=== PATIENT | female | born 1980 | race Caucasian/White ===

== ENCOUNTER 2016-09-08 18:33 | Emergency (ER) | payer OTHER ==
[~2016-09-08] VITALS: Ht 160 cm; Wt 87.3 kg
[~2016-09-08 18:33] MED LIST: CLINDAMYCIN300 M1 PO; DIPHENHYDRAMINE25 M2 PO; FLEXERIL10 M1 PO; MOTRIN800 M1 PO; PREDNISONE20 M1 PO
[2016-09-08 19:33] VITALS: BP 140/75
--- NOTE | 2016-09-08 22:34 | NUR ---
TO ER OF1
--- NOTE | 2016-09-08 22:35 | NUR ---
Patient being evaluated by physician.
[2016-09-08] MEDS ORDERED: KETOROLAC 30 MG/ML VIAL IM ONE (22:45)
[2016-09-08 23:20] VITALS: BP 137/68
--- NOTE | 2016-09-08 23:20 | NUR ---
Patient discharged with v/s stable. Written and verbal after care instructions given and explained. Patient alert, oriented and verbalized understanding of instructions. Ambulatory with steady gait. All questions addressed prior to discharge. ID band removed. Patient advised to follow up with PMD. Rx of naproxen and prednisone given. Patient educated on indication of medication including possible reaction and side effects. Opportunity to ask questions provided and answered.
== END 2016-09-08 23:20 | disposition home or self-care (01) ==
LOC: MED 18:33
DX: S39.012A Strain of muscle, fascia and tendon of lower back, initial encounter (principal); R05 Cough; Z87.891 Personal history of nicotine dependence; X58.XXXA Exposure to other specified factors, initial encounter; Y93.89 Activity, other specified; Y92.89 Other specified places as the place of occurrence of the external cause; Y99.8 Other external cause status
CPT/HCPCS: 71010; 81002; 81025; 96372; 99283; J1885

== ENCOUNTER 2016-10-21 05:04 | Emergency (ER) | payer OTHER ==
[~2016-10-21] VITALS: Ht 158.8 cm; Wt 88.2 kg
[~2016-10-21 05:04] MED LIST changes: -CLINDAMYCIN300 M1 PO; +CYCL-405 PO; -DIPHENHYDRAMINE25 M2 PO; -FLEXERIL10 M1 PO; +IBUP-974 PO; -MOTRIN800 M1 PO; -PREDNISONE20 M1 PO
[2016-10-21 05:11] VITALS: BP 146/68
--- NOTE | 2016-10-21 05:15 | NUR ---
PT TAKEN TO BED 7
--- NOTE | 2016-10-21 05:30 | NUR ---
36Y/F PT. PRESENT TO ED WITH C/O RT. LEG PAIN X 2 MONTHS. PT. STATES HAVING PAIN X 2 MONTH, WAS SEEN BY PMD GOT BACLOFEN AND MOTRIN FOR PAIN. BEEN DOING PT. TONIGHT PAIN WORSEN. NO TRAUMA NOR INJURY. NO MEDICAL HX. AAO X4, AMBULATORY WITH UNSTEADY GAIT DUE TO PAIN. C/O RT. LEG PAIN 11/13. VSS, S/SX OF DISTRESS AT THIS TIME. ER MD MADE AWARE OF PT. STATUS.
--- NOTE | 2016-10-21 05:31 | NUR ---
Dr. Watkins evaluating patient at bedside.
[2016-10-21] MEDS ORDERED: HYDROmorphone 1 MG/ML AMP IM ONE (05:35)
[2016-10-21] MEDS ORDERED: KETOROLAC 30 MG/ML VIAL IM ONE ×2 (05:35→07:00)
--- NOTE | 2016-10-21 06:01 | NUR ---
PT TAKEN TO CT
--- NOTE | 2016-10-21 06:17 | NUR ---
PT BACK FROM CT.
--- NOTE | 2016-10-21 06:50 | NUR ---
DR. ROMO REEVALUATING PT.
[2016-10-21] MEDS ORDERED: HYDROcodone/APAP 5/325 MG 1 TAB TAB PO ONE (07:00)
[2016-10-21 07:26] VITALS: BP 131/77
--- NOTE | 2016-10-21 07:26 | NUR ---
Patient discharged with v/s stable. Written and verbal after care instructions given and explained. Patient alert, oriented and verbalized understanding of instructions. Ambulatory with steady gait. All questions addressed prior to discharge. ID band removed. Patient advised to follow up with PMD. Rx of NORCO 5MG-325MG TAB 1 TAB EVERY 4 HOURS NEEDED FOR PAIN, NAPROSYN 500MG 1 TAB 2 TIMES A DAY NEEDED FOR PAIN given. Patient educated on indication of medication including possible reaction and side effects. Opportunity to ask questions provided and answered.
== END 2016-10-21 07:26 | disposition home or self-care (01) ==
LOC: MED 05:04
DX: M51.17 Intervertebral disc disorders with radiculopathy, lumbosacral region (principal)
CPT/HCPCS: 72131; 81025; 96372; 99284; J1170; J1885

== ENCOUNTER 2016-10-27 17:35 | Emergency (ER) | payer OTHER ==
[~2016-10-27] VITALS: Ht 162.6 cm; Wt 87.2 kg
[2016-10-27 18:12] VITALS: BP 141/82
--- NOTE | 2016-10-27 19:32 | NUR ---
PT TAKEN TO BED 4
--- NOTE | 2016-10-27 19:35 | NUR ---
36F BIB SELF C/O LOWER BACK PAIN X 3 MONTHS, RADIATING TO RT LEG X 1 MONTH, SHARP, 09/13; PT STATES " I KNOW IT'S MY NERVE"; PT STATES NO TRAUMA OR INJURY TO SITE AT THIS TIME; RT PEDAL PULSE PALPABLE, RT CAP REFILL < 2 SECONDS, NO LOSS OF SENSATION TO RT LEG AT THIS TIME; PT C/O 2 EPISODES OF VOMITING TODAY, BUT STATES NO DIARRHEA AT THIS TIME; ABDOMEN SOFT, NON-TENDER, ACTIVE BOWEL SOUNDS X 4 QUADRANTS; PT AA&OX4, PERRLA, BL LUNG SOUNDS CLEAR, RR EVEN/UNLABORED, SKIN IS WARM/DRY/INTACT AT THIS TIME; PT RESTING IN BED W/ HOB ELEVATED AND IN LOWEST POSITION; POSITIONED FOR COMFORT; ER MD MADE AWARE OF STATUS. WILL CONTINUE TO MONITOR.
--- NOTE | 2016-10-27 19:40 | NUR ---
Dr. Chairez evaluating patient at bedside.
[2016-10-27] MEDS ORDERED: MORPHINE SULFATE 10 MG/ML SYR IM ONE (19:50)
[2016-10-27] MEDS ORDERED: ONDANSETRON 4 MG ODT PO ONE (19:50)
[2016-10-27 20:40] VITALS: BP 121/77
--- NOTE | 2016-10-27 20:40 | NUR ---
Patient discharged with v/s stable. Written and verbal after care instructions given and explained. Patient alert, oriented and verbalized understanding of instructions. Ambulatory with steady gait. All questions addressed prior to discharge. ID band removed. Patient advised to follow up with PMD. Rx of NORCO 5MG-325MG TAB given. Patient educated on indication of medication including possible reaction and side effects. Opportunity to ask questions provided and answered.
== END 2016-10-27 20:40 | disposition home or self-care (01) ==
LOC: MED 17:35
DX: M51.36 Other intervertebral disc degeneration, lumbar region (principal)
CPT/HCPCS: 81002; 81025; 96372; 99283; J2270; S0119

== ENCOUNTER 2016-11-27 14:26 | Emergency (ER) | payer OTHER ==
[~2016-11-27] VITALS: Ht 157.5 cm; Wt 87.1 kg
[~2016-11-27 14:26] MED LIST changes: -CYCL-405 PO; +HYDR-4446 PO; +NAPR500T1 PO
[2016-11-27 14:59] VITALS: BP 149/97
--- NOTE | 2016-11-27 17:13 | NUR ---
36F BIB SELF C/O "SHARP" BACK PAIN 10/13 RADIATING TO RIGHT KNEE AND FOOT X 2 DAYS; PT HAS HX OF STENOSIS; PT DENIES ANY RECENT FALLS OR INJURY; PATIENT MOVING ALL FOUR EXTREMITIES; PT AOX4 WITH STEADY GAIT; RR ARE EVEN AND UNLABORED;VSS; PATIENT POSITIONED FOR COMFORT; HOB ELEVATED; ER OSEA BY BEDSIDE EXAMINING PATIENT; WILL CONTINUE TO MONITOR
[2016-11-27] MEDS ORDERED: BUPIVACAINE-MPF 0.5% 10 ML VIAL INJ ONE (17:25)
[2016-11-27] MEDS ORDERED: DEXAMETHASONE 4 MG/ML VIAL IM ONE (17:25)
--- NOTE | 2016-11-27 17:34 | NUR ---
Dr. Hernandez at bedside.
--- NOTE | 2016-11-27 18:14 | NUR ---
Patient discharged with v/s stable. Written and verbal after care instructions given and explained. Patient verbalized understanding. Ambulatory with steady gait. All questions addressed prior to discharge. Advised to follow up with PMD.
[2016-11-27 18:15] VITALS: BP 150/88
== END 2016-11-27 18:14 | disposition home or self-care (01) ==
LOC: MED 14:26
DX: G89.29 Other chronic pain (principal); M54.5 Low back pain; Z79.899 Other long term (current) drug therapy; Z88.8 Allergy status to other drugs, medicaments and biological substances
CPT/HCPCS: 20552; 81002; 81025; 96372; 99284; J1100; J3490

== ENCOUNTER 2016-12-16 23:17 | Emergency (ER) | payer OTHER ==
[~2016-12-16] VITALS: Ht 157.5 cm; Wt 87.1 kg
[2016-12-16 23:55] VITALS: BP 151/84
--- NOTE | 2016-12-17 00:48 | NUR ---
Patient ambulated to bed 04.
--- NOTE | 2016-12-17 00:50 | NUR ---
36 Y/O F W/C/O RIGHT LOWER BACK PAIN. FIRST DAY OF PHYSICAL THERAPY TODAY; SCHEDULED TO SEE PAIN MANAGEMENT TOMORROW. NO S/S OF DISTRESS NOTED AT THE MOMENT.HX SPINAL STENOSIS. ER MD MADE AWARE.
--- NOTE | 2016-12-17 01:10 | NUR ---
Dr. Prado evaluating patient at bedside.
[2016-12-17] MEDS ORDERED: KETOROLAC 60 MG/2 ML VIAL IM ONE ×2 (01:25→01:32)
[2016-12-17 01:50] VITALS: BP 136/78
--- NOTE | 2016-12-17 01:50 | NUR ---
Patient discharged with v/s stable. Written and verbal after care instructions given and explained. Patient alert, oriented and verbalized understanding of instructions. Ambulatory with steady gait. All questions addressed prior to discharge. ID band removed. Patient advised to follow up with PMD OR RETURN BACK TO ER IF CONDITION WORSENS. Rx of PREDNISONE given. Patient educated on indication of medication including possible reaction and side effects. Opportunity to ask questions provided and answered.
== END 2016-12-17 01:50 | disposition home or self-care (01) ==
LOC: MED 23:17
DX: G89.29 Other chronic pain (principal); M54.5 Low back pain; M13.88 Other specified arthritis, other site; Z79.899 Other long term (current) drug therapy
CPT/HCPCS: 96372; 99283; J1885

== ENCOUNTER 2020-06-03 03:43 | Emergency (ER) | payer OTHER ==
[~2020-06-03] VITALS: Ht 160 cm; Wt 86.2 kg
[~2020-06-03 03:43] MED LIST changes: +ACET-8386 PO; -HYDR-4446 PO; +NAPR-54 PO; -NAPR500T1 PO
[2020-06-03 03:44] VITALS: BP 133/68
[2020-06-03] MEDS ORDERED: NITROGLYCERIN 0.4 MG TAB SL ONE (04:00)
[2020-06-03] MEDS ORDERED: ASPIRIN 325 MG TAB PO ONE (04:00)
[2020-06-03 05:52] LABS: BASOPHILS % (AUTO) 0.1 % (0.0-2.0); EOSINOPHILS # (AUTO) 0.1 K/uL (0-0.4); EOSINOPHILS % (AUTO) 0.8 % (0.0-4.0); HEMATOCRIT 37.5 % (36-48); HEMOGLOBIN 12.5 g/dL (12.0-16.0); LYMPHOCYTES % (AUTO) 18.7 % (20.5-51.1); MEAN CORPUSCULAR HEMOGLOBIN 27 pg (27-31); MEAN CORPUSCULAR HGB CONC 33 g/dL (33-37); MEAN CORPUSCULAR VOLUME 82.4 fL (80-94); MONOCYTES # (AUTO) 0.6 K/uL (0.8-1.0); MONOCYTES % (AUTO) 5.5 % (1.7-9.3); NEUTROPHILS # (AUTO) 7.9 K/uL (1.8-7.7); NEUTROPHILS % (AUTO) 74.9 % (42.2-75.2); PLATELET COUNT (AUTO) 256 K/uL (140-450); RED BLOOD CELL COUNT(AUTO) 4.55 MIL/uL (4.20-5.40); RED CELL DISTRIBUTION WIDTH 12.6 % (11.6-13.7); WHITE BLOOD COUNT (AUTO) 10.6 K/uL (4.8-10.8)
[2020-06-03 06:12] LABS: ALBUMIN 3.4 g/dL (3.4-5.0); ANION GAP 12.5 (8-16); CREATININE 0.7 mg/dL (0.6-1.3); POTASSIUM 3.5 mmol/L (3.5-5.1); TOTAL BILIRUBIN 0.8 mg/dL (0.0-1.0)
[2020-06-03] MEDS ORDERED: PANT40EC PO (06:26)
[2020-06-03 06:35] VITALS: BP 132/72
== END 2020-06-03 06:35 | disposition home or self-care (01) ==
LOC: MED 03:43
DX: R07.9 Chest pain, unspecified (principal); G89.29 Other chronic pain; M54.9 Dorsalgia, unspecified; Z79.899 Other long term (current) drug therapy
CPT/HCPCS: 36415; 71045; 80053; 84484; 85025; 93005; 99285

== ENCOUNTER 2021-01-07 21:23 | Emergency (ER) | payer OTHER ==
[~2021-01-07] VITALS: Ht 160 cm; Wt 86.2 kg
[~2021-01-07 21:23] MED LIST changes: +PANT40EC PO
[2021-01-07 21:30] VITALS: BP 130/67
--- NOTE | 2021-01-08 01:22 | NUR ---
PT TAKEN TO BED #8 FROM RAD.
== END 2021-01-08 02:48 | disposition home or self-care (01) ==
LOC: MED 21:23
DX: S16.1XXA Strain of muscle, fascia and tendon at neck level, initial encounter (principal); Z98.51 Tubal ligation status; Z98.890 Other specified postprocedural states; Z79.899 Other long term (current) drug therapy; Z79.891 Long term (current) use of opiate analgesic; Z79.1 Long term (current) use of non-steroidal anti-inflammatories (NSAID); Z91.048 Other nonmedicinal substance allergy status; V89.2XXA Person injured in unspecified motor-vehicle accident, traffic, initial encounter; Y93.89 Activity, other specified; Y92.410 Unspecified street and highway as the place of occurrence of the external cause; Y99.8 Other external cause status
CPT/HCPCS: 72040; 99284